=== PATIENT | female | born 1955 | race Caucasian/White ===

== ENCOUNTER → 2017-01-13 | Outpatient (CLI) | payer MEDICARE, MEDICAID ==
[~2017-01-13] MED LIST: ASA CHILDREN'S81 MG PO; ATIVAN-DPS1 MG PO; CYTOMEL25 MCG PO; FOLVITE-DPS1 MG PO; LEVAQUIN DPS500 MG PO; LOPRESSOR DPS100 MG PO; SEROQUEL DPS300 MG PO; SYNTHROID DPS0.15 MG PO; THERA1 EACH PO; TYLENOL DPS325 MG PO; VISTARIL-DPS25 MG PO; WELLBUTRIN SR150 M1 PO; WELLBUTRIN XL300 MG PO
== END | disposition home or self-care (01) ==
LOC: RAD.S 01-03 08:30
DX: Z12.31 Encounter for screening mammogram for malignant neoplasm of breast (principal)